=== PATIENT | female | born 1935 | race Two or more races ===

== ENCOUNTER 2020-01-12 09:46 | Inpatient (IN) | payer OTHER ==
[~2020-01-12] VITALS: Ht 162.6 cm; Wt 99.8 kg
[2020-01-12] MEDS ORDERED: TEMAZEPAM15 MG (10:01)
[2020-01-12] MEDS ORDERED: RISPERDAL1 MG (10:02)
[2020-01-12] MEDS ORDERED: AMPICILLIN TRI500 MG (10:03)
[2020-01-12] MEDS ORDERED: BIOCAL SOFTGEL1 EACH (10:03)
[2020-01-12] MEDS ORDERED: MACRODANTIN100 M1 (10:04)
[2020-01-12] MEDS ORDERED: SIMVASTATIN5 MG (10:04)
[2020-01-12] MEDS ORDERED: FOLINIC-PLUS C1 EACH (10:05)
[2020-01-12] MEDS ORDERED: LASIX20 MG (10:05)
[2020-01-12] MEDS ORDERED: OMEPRAZOLE MAGN20 MG (10:06)
[2020-01-12] MEDS ORDERED: FEROSUL325 MG (10:06)
--- NOTE | 2020-01-12 10:07 | NUR ---
SE RECIBE FEMINA DE 84 ANOS CON FAMILIAR POR EL CUAL REFIERE QUE LA PTE SE CALLO EN EL JOHNNIE ESTA MANANA. SE REALIZA EKG Y SE UBICA EN AREA DE OBSERVACION.
--- NOTE | 2020-01-12 11:31 | NUR ---
SE ORIENTA PTE SOBRE EL TRATAMIENTO ORDENADO POR LA DRA VELEZ PTE ALERTA Y CONCIENTE POR 3 SE REALIZAN MUESTRAS DE LABORATORIO Y SE ADMINISTRAN MEDICAMENTO BIBIANA ORDENADO
[2020-01-19] MEDS ORDERED: RESTORIL15 MG PO (12:09)
[2020-01-19] MEDS ORDERED: ARICEPT5 MG PO (12:09)
== END 2020-01-19 15:33 | disposition home or self-care (01) | DRG 101 ==
LOC: ER 09:46 → SURH 18:36 → SEC-K 18:36 → SURH 21:15 → MEDI 01-13 21:15 → MEDJ 01-16 19:27 → SURH 01-16 20:59 → MEDJ 01-17 13:02
PROVIDERS: ADMIT Internal Medicine; ATTEND Internal Medicine
PROC: 4A033R1 Measurement of Arterial Saturation, Peripheral, Percutaneous Approach (ICD-10-PCS; principal; 2020-01-12)
PROC: 4A12X4Z Monitoring of Cardiac Electrical Activity, External Approach (ICD-10-PCS; 2020-01-13)
DX: G40.89 Other seizures (principal); E87.1 Hypo-osmolality and hyponatremia; F03.90 Unspecified dementia, unspecified severity, without behavioral disturbance, psychotic disturbance, mood disturbance, and anxiety; E87.5 Hyperkalemia; E78.49 Other hyperlipidemia; E11.22 Type 2 diabetes mellitus with diabetic chronic kidney disease; N18.30 Chronic kidney disease, stage 3 unspecified; D63.1 Anemia in chronic kidney disease; E86.0 Dehydration; I12.9 Hypertensive chronic kidney disease with stage 1 through stage 4 chronic kidney disease, or unspecified chronic kidney disease
CPT/HCPCS: 70551